=== PATIENT | male | born 1990 | race Caucasian/White ===

== ENCOUNTER 2017-09-20 21:12 | Emergency (ER) | payer OTHER ==
[~2017-09-20] VITALS: Ht 299.7 cm; Wt 82.6 kg
[2017-09-20] MEDS ORDERED: NORCO 10/3251 TABLET PO (22:58)
[2017-09-20 23:32] VITALS: BP 126/70
== END 2017-09-20 23:33 | disposition home or self-care (01) ==
LOC: EME → EDBD 21:12 → EME 23:33
DX: S82.841A Displaced bimalleolar fracture of right lower leg, initial encounter for closed fracture (principal); W11.XXXA Fall on and from ladder, initial encounter; F17.200 Nicotine dependence, unspecified, uncomplicated
CPT/HCPCS: 73610; 99281; 99285; J3010; J7040